=== PATIENT | female | born 1960 | race Caucasian/White ===

== ENCOUNTER → 2017-02-07 | Outpatient (CLI) | payer OTHER ==
[~2017-02-07] VITALS: Ht 162.6 cm; Wt 63.5 kg
== END ==
LOC: OPSV 14:46
DX: K50.90 Crohn's disease, unspecified, without complications (principal)
CPT/HCPCS: 96365; J3380

== ENCOUNTER → 2017-04-04 | Outpatient (CLI) | payer OTHER ==
[~2017-04-04] VITALS: Ht 162.6 cm; Wt 63.5 kg
[2017-04-04 17:55] LABS: HEMOGLOBIN 15.3 gm/dl (12.3-15.3); RED BLOOD COUNT 5.04 M/UL (4.00-5.10); WHITE BLOOD COUNT 12.3 K/UL (4.5-11.0)
[2017-04-04 18:14] LABS: BUN/CREATININE RATIO 18 (0-10)
== END ==
LOC: OPSV 16:00
PROVIDERS: Internal Medicine Gastroenterology
DX: K50.90 Crohn's disease, unspecified, without complications (principal)
CPT/HCPCS: 36415; 80053; 85027; 86140; 96365; J3380

== ENCOUNTER → 2020-10-28 | Outpatient (CLI) | payer OTHER ==
[~2020-10-28] VITALS: Ht 162.6 cm; Wt 64.9 kg
== END ==
LOC: OPSV 11:00
DX: K50.919 Crohn's disease, unspecified, with unspecified complications (principal)
CPT/HCPCS: 96365; J3380; J7050

== ENCOUNTER → 2020-12-23 | Outpatient (CLI) | payer OTHER ==
[~2020-12-23] VITALS: Ht 170.2 cm; Wt 64.9 kg
== END ==
LOC: OPSV 12:00
DX: K50.919 Crohn's disease, unspecified, with unspecified complications (principal)
CPT/HCPCS: 96365; J3380; J7050

== ENCOUNTER → 2021-02-24 | Outpatient (CLI) | payer OTHER ==
[~2021-02-24] VITALS: Ht 162.6 cm; Wt 64.9 kg
== END ==
LOC: OPSV 02-17 11:00
DX: K50.919 Crohn's disease, unspecified, with unspecified complications (principal)
CPT/HCPCS: 96365; J3380; J7030

== ENCOUNTER → 2021-05-12 | Outpatient (CLI) | payer OTHER ==
[~2021-05-12] VITALS: Ht 170.2 cm; Wt 64.9 kg
== END ==
LOC: OPSV 04-28 11:00
DX: K50.919 Crohn's disease, unspecified, with unspecified complications (principal)
CPT/HCPCS: 96365; J3380; J7050

== ENCOUNTER → 2021-07-21 | Outpatient (CLI) | payer OTHER ==
[~2021-07-21] VITALS: Ht 162.6 cm; Wt 64.9 kg
== END ==
LOC: OPSV 07-07 11:00
DX: K50.919 Crohn's disease, unspecified, with unspecified complications (principal)
CPT/HCPCS: 96365; J3380; J7050

== ENCOUNTER → 2021-09-18 | Outpatient (CLI) | payer OTHER ==
[~2021-09-18] VITALS: Ht 162.6 cm; Wt 64.9 kg
== END ==
LOC: OPSV 11:59
DX: K50.919 Crohn's disease, unspecified, with unspecified complications (principal)
CPT/HCPCS: 96365; J3380; J7030

== ENCOUNTER → 2021-12-08 | Outpatient (CLI) | payer OTHER ==
[~2021-12-08] VITALS: Ht 162.6 cm; Wt 64.9 kg
== END ==
LOC: OPSV 11-17 12:00
DX: K50.90 Crohn's disease, unspecified, without complications (principal)
CPT/HCPCS: 96365; J3380; J7050

== ENCOUNTER → 2022-02-09 | Outpatient (CLI) | payer OTHER ==
[~2022-02-09] VITALS: Ht 162.6 cm; Wt 64.9 kg
== END ==
LOC: OPSV 02-02 11:00
DX: K50.90 Crohn's disease, unspecified, without complications (principal)
CPT/HCPCS: 96365; J3380; J7050

== ENCOUNTER → 2022-04-06 | Outpatient (CLI) | payer OTHER ==
[~2022-04-06] VITALS: Ht 162.6 cm; Wt 64.9 kg
== END ==
LOC: OPSV 11:00
DX: K50.90 Crohn's disease, unspecified, without complications (principal)
CPT/HCPCS: 96365; J3380; J7030; J7050

== ENCOUNTER → 2022-06-06 | Outpatient (CLI) | payer OTHER ==
[~2022-06-06] VITALS: Ht 162.6 cm; Wt 64.9 kg
== END ==
LOC: OPSV 06-01 11:00
DX: K50.90 Crohn's disease, unspecified, without complications (principal)
CPT/HCPCS: 96365; J3380; J7050